=== PATIENT | female | born 2005 | race Caucasian/White ===

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

== ENCOUNTER 2024-08-15 13:58 | Emergency (ER) | payer MEDICAID ==
[~2024-08-15] VITALS: Ht 160 cm; Wt 62.5 kg
[~2024-08-15 13:58] MED LIST changes: +KEFLEX500 MG PO; +MEDICAL MARIJUANA; +MOTRIN800 MG PO; +TRAMADOL HCL50 MG PO
[2024-08-15 14:50] VITALS: BP 114/70
[2024-08-15] MEDS ORDERED: AZELASTINE HCL0.1 % (16:35)
[2024-08-15] MEDS ORDERED: VIBRAMYCIN100 M2 PO (16:35)
[2024-08-15] MEDS ORDERED: LEVOCETIRIZINE D5 MG PO (16:35)
== END 2024-08-15 16:50 | disposition home or self-care (01) ==
LOC: ED 13:58
DX: J32.9 Chronic sinusitis, unspecified (principal); Z20.822 Contact with and (suspected) exposure to COVID-19